=== PATIENT | female | born 1970 | race Caucasian/White ===

== ENCOUNTER → 2020-06-08 | Outpatient (CLI) | payer SELFPAY ==
--- NOTE | 2020-06-07 14:15 | EMB_PTH ---
PATIENT: MARCEL FARMER LOC: [facility] U#:[id number] AGE/SX: 50/F ROOM: RE06/08/[address]: Dr. Juan Kinney MD : [id number] BED: DIS: 06/08/2020 SPEC #: [id number] RECD: 06/08/20 13:19 STATUS: BG ERICA #: [id number] [place]: 06/07/20 14:[address]: Juan Kinney DEPT: SURGICAL PATHOLOGY RECD BY: Prema Denny Tissues: Endometrium, NOS Procedures: Surgery Specimen Level IV HEADER OPERATION: Endometrial biopsy PRE-OP DIAGNOSIS: N92.6 TISSUE SUBMITTED: Endometrial biopsy MICROSCOPIC DIAGNOSIS Endometrium, biopsy: Strips of benign superficial endometrium with glandular and stromal breakdown. Rare strips of benign superficial endocervix. See comment. AM:myron 06/10/20 COMMENT The endometrium may represent the perimenstrual phase. Clinical correlation is suggested. MICROSCOPIC DESCRIPTION Slides are reviewed. GROSS DESCRIPTION Received in fixative is one container labeled with the patient's name and designated EM biopsy. The specimen consists of multiple fragments of hemorrhagic soft tissue mixed with blood clot that in aggregate measure 3 x 2.5 x 0.2 cm. The specimen is totally submitted in one cassette. / SJ:rg 06/09/20 TC:5 CPT: [id number]
[2020-06-14 00:40] LABS: HPV Reflexed? NOT INDICATED
== END | disposition home or self-care (01) ==
LOC: LABSPEC 14:03
PROVIDERS: Referring Provider Obstetrics & Gynecology; Visit Provider Obstetrics & Gynecology
DX: Z12.4 Encounter for screening for malignant neoplasm of cervix (principal); N92.6 Irregular menstruation, unspecified
CPT/HCPCS: 88175; 88305; G0145